=== PATIENT | female | born 2005 | race American Indian/Alaskan Native ===

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

== ENCOUNTER 2024-04-04 00:12 | Emergency (ER) | payer BC, OTHER, SELFPAY ==
[2024-04-04] VITALS (7 sets, daily range): BP systolic 121–155; BP diastolic 71–102; PULSE 79–116; RESP 17–26; TEMP 37.2; O2SAT 98–100; BMI 34.3
[2024-04-04] MEDS: methylPREDNISolone 125 MG/2 ML VIAL IV (00:22)
[2024-04-04] MEDS: diphenhydrAMINE 50 MG/ML VIAL IV (00:22)
[2024-04-04] MEDS: FAMOTIDINE 20 MG/2 ML VIAL IV (00:23)
--- NOTE | 2024-04-04 00:29 | ED.ALLEREA ---
HPI - Allergic Reaction General Chief complaint: Allergic Reaction Stated complaint: hives Time Seen by Provider: 04/04/24 00:13 Source: patient Mode of arrival: Ambulatory History of Present Illness HPI narrative: 18-year-old female with history of hidradenitis suppurativa presents by private vehicle from home for allergic reaction. Patient states she was on day 4 of doxycycline treatment for her HS and this evening she broke out into a diffuse rash over her body. She took 25 mg of Benadryl at home and her mom encouraged her to take a hot shower. Her hives continued and she felt like her face was swelling and she came to the ER for evaluation. Benadryl taken approximately 1 hour prior to arrival. Currently complaining of itchiness and hives, denying shortness of breath, vomiting, wheezing Related Data Previous Rx's Medication Instructions Recorded epinephrine 0.3 mg/0.3 mL 0.3 mg (0.3 mL) IM Q5-15M PRN 04/04/24 injection, auto-injector (EpiPen) anaphylaxis #2 ea Allergies Allergy/AdvReac Type Severity Reaction Status Date / Time No Known Drug Allergies Allergy Verified 11/17/21 22:18 Patient History Social History Smoking Status: Never smoker Smoking Status: Never smoker Exam Initial Vital Signs Initial Vital Signs: Vital Signs Temperature 98.9 F 04/04/24 00:14 Pulse Rate 116 H 04/04/24 00:14 Respiratory Rate 22 04/04/24 00:14 Blood Pressure 155/102 H 04/04/24 00:14 Pulse Oximetry 100 04/04/24 00:14 Oxygen Delivery Method Room Air 04/04/24 00:14 Const: Awake, alert, no acute distress, nontoxic appearing Cardiac: Tachycardia, regular rhythm RESP: unlabored, clear bilaterally, no wheezing GI: Soft, nontender, nondistended Skin: Warm, Dry, diffuse urticarial rash present Neuro: AO x3, CN II-XII grossly intact, moves all extremities Course Orders Ordered: Famotidine (Famotidine 20 Mg/2 Ml Vial) 20 mg IV NOW CHRIS Last Admin: 04/04/24 00:23 Dose: 20 mg Documented By: LS Discontinued Medications Diphenhydramine HCl (Diphenhydramine 50 Mg/Ml Vial) 50 mg IV NOW ONE Stop: 04/04/24 00:19 Last Admin: 04/04/24 00:22 Dose: 50 mg Documented By: TOMAS Methylprednisolone (Methylprednisolone 125 Mg/2 Ml Vial) 125 mg IV NOW ONE Stop: 04/04/24 00:19 Last Admin: 04/04/24 00:22 Dose: 125 mg Documented By: TOMAS Vital Signs Vital signs: Vital Signs - 8 hr 04/04/24 00:14 Temperature 98.9 F Pulse Rate 116 H Respiratory Rate 22 Blood Pressure 155/102 H Pulse Oximetry 100 Oxygen Delivery Method Room Air MDM - Allergic Reaction MDM Narrative Medical decision making narrative: Well-appearing patient with allergic reaction. Possibly to doxycycline, however patient denies known history of allergies. No wheezing or signs of respiratory distress on exam. IV established, allergy cocktail ordered for symptoms. Patient monitored for several hours in the emergency department with resolution of allergic symptoms. No return of hives or other complaints. Patient counseled to stop taking the doxycycline and to call her doctor for a different rx for HS. Just in case EpiPen prescription sent to pharmacy of choice. Discharge Plan Departure Patient Disposition: Home Clinical Impression: Allergic reaction Instructions: DI for Adverse Drug Reaction -- Allergic Activity Restrictions/Additional Instructions: Closely monitor your symptoms to see if he can find out what you are allergic to. A [id number] EpiPen prescription has been sent to your pharmacy. If you notice throat closing, severe swelling you may use this to prevent anaphylaxis Prescriptions: New epinephrine [EpiPen] 0.3 mg/0.3 mL auto-injector 0.3 mg IM Q5-15M PRN (Reason: anaphylaxis) Qty: 2 0RF Rx Instructions: do not exceed 3 doses per episode Referrals: Sole Alberto MD [Primary Care Provider] - Stand Alone Forms: Patient Portal/API/Survey
== END 2024-04-04 02:37 | disposition home or self-care (01) ==
PROVIDERS: Emergency Provider Emergency Medicine; PCP Family Medicine
DX: L50.9 Urticaria, unspecified (principal); T36.4X5A Adverse effect of tetracyclines, initial encounter
CPT/HCPCS: 96374; 96375; 99283; 99284; J1200; J2919

== ENCOUNTER 2024-12-02 08:23 | Emergency (ER) | payer BC, SELFPAY ==
[2024-12-02 08:35] VITALS: BP 141/83; PULSE 105; RESP 18; TEMP 36.9; O2SAT 100; BMI 34.0
--- NOTE | 2024-12-02 08:44 | ED.SKABFB ---
HPI - Skin/Abscess/Foreign Bdy General Chief complaint: Skin/Abscess/Foreign Body Stated complaint: Abscess on left side of Jaw x 7 days Time Seen by Provider: 12/02/24 08:36 Source: patient Mode of arrival: Ambulatory Limitations: no limitations History of Present Illness HPI narrative: 19-year-old female history of hydradenitis suppurativa presents with right facial abscess that is been going on for 1 week with no active drainage, or bleeding. Patient denies fever, chills, bodyaches. Patient has not done anything for it nothing makes it better or worse. Other than what is stated 14 point review of system is negative. Related Data Previous Rx's ?Medication ?Instructions ?Recorded epinephrine 0.3 mg/0.3 mL 0.3 mg (0.3 mL) IM Q5-15M PRN 04/04/24 injection, auto-injector (EpiPen) anaphylaxis #2 ea sulfamethoxazole 800 1 tab PO Q12H #14 tabs 12/02/24 mg-trimethoprim 160 mg tablet (Bactrim DS) Allergies Allergy/AdvReac Type Severity Reaction Status Date / Time doxycycline Allergy Verified 12/02/24 08:35 Review of Systems Review of Systems ROS Unobtainable: All systems reviewed & are unremarkable except as noted in HPI and below Patient History Smoking Status: Former smoker Exam Narrative Exam Narrative: GENERAL: [19] year old patient appears stated age. Well-developed patient, in mild distress. HEAD: Atraumatic. Normocephalic. EYES: Pupils equal round and reactive. Extraocular motions intact. No scleral icterus. No injection or drainage. EXTREMITIES: No edema or joint tenderness. BACK: Nontender without deformity or crepitance. No flank tenderness. NEURO: AOx3. SKIN: R angle of mandible region abscess pea size red warm ttp with min fluctuance, no streaking and no active bleeding or drainage Initial Vital Signs Initial Vital Signs: Vital Signs Temperature 98.4 F 12/02/24 08:35 Pulse Rate 105 H 12/02/24 08:35 Respiratory Rate 18 12/02/24 08:35 Blood Pressure 141/83 H 12/02/24 08:35 Pulse Oximetry 100 12/02/24 08:35 Oxygen Delivery Method Room Air 12/02/24 08:35 Course Vital Signs Vital signs: Vital Signs - 8 hr 08/04/25 08:35 Temperature 98.4 F Pulse Rate 105 H Respiratory Rate 18 Blood Pressure 141/83 H Pulse Oximetry 100 Oxygen Delivery Method Room Air MDM - Skin/Abscess/Foreign Bdy MDM Narrative Medical decision making narrative: Vital signs, nurse triage note, medication list, previous ER visits, and all imaging studies reviewed. Patient given Bactrim here, DC home on bactrim Rx and told to return in 48-72 hours for wound recheck. Differential diagnosis includes cellulitis abscess MRSA. Discharge Plan Departure Patient Disposition: Home Clinical Impression: Abscess of face Instructions: DI for Skin Abscess Activity Restrictions/Additional Instructions: Return with new or worsening symptoms. Take your medicines directed. Warm compress 3 times a day for 20 minutes to affected region. Follow up in 72 hours for wound recheck for possible incision and drainage Prescriptions: New sulfamethoxazole-trimethoprim [Bactrim DS] 800-160 mg tablet 1 tab PO Q12H Qty: 14 0RF No Action epinephrine [EpiPen] 0.3 mg/0.3 mL auto-injector 0.3 mg IM Q5-15M PRN (Reason: anaphylaxis) Qty: 2 0RF Rx Instructions: do not exceed 3 doses per episode Referrals: Sole Alberto MD [Primary Care Provider, Family Practice] Stand Alone Forms: Patient Portal/API
[2024-12-02] MEDS: TRIMETH/SULFA 160/800 (DS) TABLET 1 TAB PO (09:06)
== END 2024-12-02 09:10 | disposition home or self-care (01) ==
PROVIDERS: Emergency Provider Family Medicine; PCP Family Medicine
DX: L02.01 Cutaneous abscess of face (principal)
CPT/HCPCS: 99283